=== PATIENT | male | born 1965 | race African-American/Black ===

== ENCOUNTER 2019-06-02 12:01 | Emergency (ER) | payer OTHER ==
[~2019-06-02] VITALS: Ht 188 cm; Wt 136.1 kg
[2019-06-02 12:02] VITALS: BP 0/0
== END 2019-06-02 12:17 | disposition expired ==
LOC: EDBD 12:01 → ER 12:06
DX: I46.9 Cardiac arrest, cause unspecified (principal); J45.909 Unspecified asthma, uncomplicated; F17.210 Nicotine dependence, cigarettes, uncomplicated; R41.82 Altered mental status, unspecified; F12.10 Cannabis abuse, uncomplicated; Z88.6 Allergy status to analgesic agent; Z87.442 Personal history of urinary calculi
CPT/HCPCS: 82962; 92950